=== PATIENT | female | born 1945 | race Caucasian/White ===

== ENCOUNTER 2017-05-11 19:16 | Emergency (ER) | payer MEDICARE ==
[~2017-05-11] VITALS: Ht 157.5 cm; Wt 70.5 kg
[~2017-05-11 19:16] MED LIST: ACET-3068 PO; ATOR20TA PO; LYR25C PO; MULT-1085 PO; NIFE10CA PO; VITA100C5 PO
[2017-05-11] MEDS ORDERED: normal saline 1000ML IV soln IV ONE (19:35)
[2017-05-11 20:12] LABS: HEMOGLOBIN 13.3 g/dl (12.0-16.0); MEAN CORPUSCULAR HEMOGLOBIN 29.9 PG (27.0-31.0); MEAN CORPUSCULAR VOLUME 87.8 FL (78-98); MEAN PLATELET VOLUME 8.7 FL (7.4-10.4); PLATELET COUNT 141 X10'3 (140-440); RED BLOOD COUNT 4.44 X10'6 (4.20-5.60); RED CELL DISTRIBUTION WIDTH 15.6 % (11.5-14.5); WHITE BLOOD COUNT 3.1 X10'3 (4.5-11.0)
[2017-05-11 20:23] LABS: ALANINE AMINOTRANSFERASE 31 U/L (12-78); ALBUMIN 3.2 G/DL (3.4-5.0); ALBUMIN/GLOBULIN RATIO 1.1 (1.1-1.5); ALKALINE PHOSPHATASE 81 IU/L (46-116); ANION GAP 7 (8-16); ASPARTATE AMINO TRANSFERASE 29 U/L (10-37); BILIRUBIN,TOTAL 0.2 MG/DL (0.1-1.0); BLOOD UREA NITROGEN 18 MG/DL (7-18); BUN/CREATININE RATIO 22.5 (6.6-38.0); CALCIUM 8.2 MG/DL (8.5-10.1); CHLORIDE 107 MMOL/L (99-107); GLUCOSE 104 MG/DL (70-104); POTASSIUM 3.4 MMOL/L (3.5-5.1); SODIUM 139 MMOL/L (135-145); TOTAL CARBON DIOXIDE 24.7 MMOL/L (24-32); TOTAL PROTEIN 6.2 G/DL (6.4-8.2); eGFR 71 ML/MIN
[2017-05-11 20:31] LABS: TOTAL CELLS COUNTED 100
[2017-05-11 20:32] LABS: PLATELET ESTIMATE NORMAL
[2017-05-11] MEDS ORDERED: oseltamivir phos 75mg capsule PO STA (21:07)
[2017-05-11] MEDS ORDERED: TAM75C PO (21:08)
[2017-05-11 21:33] VITALS: BP 108/56
== END 2017-05-11 21:41 | disposition home or self-care (01) ==
LOC: ER 19:17
DX: E86.0 Dehydration (principal); R55 Syncope and collapse; J10.1 Influenza due to other identified influenza virus with other respiratory manifestations; M19.90 Unspecified osteoarthritis, unspecified site; G89.29 Other chronic pain; Z90.710 Acquired absence of both cervix and uterus; Z88.0 Allergy status to penicillin; Z88.2 Allergy status to sulfonamides; Z91.040 Latex allergy status; Z88.8 Allergy status to other drugs, medicaments and biological substances; Z91.041 Radiographic dye allergy status; Z79.899 Other long term (current) drug therapy
CPT/HCPCS: 36415; 71045; 80053; 85025; 87502; 87503; 93005; 96360; 99285; J7030

== ENCOUNTER 2017-08-20 06:44 | Day surgery (SDC) | payer MEDICARE ==
[~2017-08-20] VITALS: Ht 157.5 cm; Wt 71.0 kg
[2017-08-20] VITALS (26 sets, daily range): BP systolic 95–134; BP diastolic 40–73
[2017-08-20] MEDS ORDERED: normal saline 1000ml 1,000 ML IV PRN (07:10)
[2017-08-20 07:30] LABS: BASOPHILS # (AUTO) 0.1 X10'3 (0-0.2); EOSINOPHILS # (AUTO) 0.4 X10'3 (0-0.9); EOSINOPHILS % (AUTO) 6.8 % (0-6); HEMATOCRIT 40.1 % (35.0-45.0); HEMOGLOBIN 13.6 g/dl (12.0-16.0); LYMPHOCYTES # (AUTO) 1.6 X10'3 (1.1-4.8); LYMPHOCYTES % (AUTO) 29.6 % (21-51); MEAN CORPUSCULAR HEMOGLOBIN 29.3 PG (27.0-31.0); MEAN CORPUSCULAR HGB CONC 33.9 % (33.0-36.5); MEAN CORPUSCULAR VOLUME 86.4 FL (78-98); MEAN PLATELET VOLUME 8.8 FL (7.4-10.4); MONOCYTES # (AUTO) 0.6 X10'3 (0-0.9); MONOCYTES % (AUTO) 10.7 % (2-12); NEUTROPHILS # (AUTO) 2.7 X10'3 (1.8-7.7); NEUTROPHILS % (AUTO) 50.9 % (42-75); PLATELET COUNT 157 X10'3 (140-440); RED BLOOD COUNT 4.64 X10'6 (4.20-5.60); RED CELL DISTRIBUTION WIDTH 15.1 % (11.5-14.5); WHITE BLOOD COUNT 5.3 X10'3 (4.5-11.0)
[2017-08-20] MEDS ORDERED: [UNRECOGNIZED DRUG - OTHER] (07:47)
[2017-08-20] MEDS ORDERED: CELE200C PO (07:47)
[2017-08-20] MEDS ORDERED: NORMAL SALINE IPL ONE ×2 (08:55→09:05)
[2017-08-20] MEDS ORDERED: DOXYCYCLINE IPL ONE ×2 (08:55→09:05)
[2017-08-20] MEDS ORDERED: fentaNYL/PF 50MCG/1 ML 2ML syringe IV PRN (09:55)
[2017-08-20] MEDS ORDERED: midazolam 2 mg/2 ml injection IV PRN (09:55)
[2017-08-20] MEDS ORDERED: LIDOcaine 1%/PF (10mg/ml) 5ml vial ONE ×2 (10:04→11:13)
[2017-08-20] MEDS ORDERED: midazolam 2 mg/2 ml injection ONE (10:04)
[2017-08-20] MEDS ORDERED: fentaNYL/PF 50MCG/1 ML 2ML syringe ONE (10:04)
[2017-08-20] MEDS ORDERED: clindamycin 600mg/D5W 50ml 50 ML IV ONE ×2 (11:08→11:10)
[2017-08-20] MEDS ORDERED: normal saline 1000ml 1,000 ML IV SCH (12:01)
[2017-08-20] MEDS ORDERED: acetaminophen w/codeine (30MG) #3 tablet PO PRN (12:15)
[2017-08-20] MEDS ORDERED: celeCOXIB 100mg capsule PO SCH (13:00)
[2017-08-20] MEDS ORDERED: pregabalin 25mg capsule PO SCH (13:00)
[2017-08-20 15:39] LABS: BASOPHILS % (AUTO) 0.7 % (0-1); EOSINOPHILS # (AUTO) 0.3 X10'3 (0-0.9); EOSINOPHILS % (AUTO) 5.7 % (0-6); HEMATOCRIT 38.8 % (35.0-45.0); LYMPHOCYTES # (AUTO) 1.4 X10'3 (1.1-4.8); LYMPHOCYTES % (AUTO) 28.2 % (21-51); MEAN CORPUSCULAR HEMOGLOBIN 28.9 PG (27.0-31.0); MEAN CORPUSCULAR HGB CONC 33.6 % (33.0-36.5); MEAN CORPUSCULAR VOLUME 85.9 FL (78-98); MEAN PLATELET VOLUME 8.9 FL (7.4-10.4); MONOCYTES # (AUTO) 0.5 X10'3 (0-0.9); MONOCYTES % (AUTO) 10.8 % (2-12); NEUTROPHILS # (AUTO) 2.7 X10'3 (1.8-7.7); NEUTROPHILS % (AUTO) 54.6 % (42-75); PLATELET COUNT 144 X10'3 (140-440); RED BLOOD COUNT 4.51 X10'6 (4.20-5.60); RED CELL DISTRIBUTION WIDTH 15.1 % (11.5-14.5)
== END 2017-08-20 16:05 | disposition home or self-care (01) ==
LOC: SSTAY O 06:44
PROVIDERS: ATTEND Radiology Vascular & Interventional Radiology
DX: K76.89 Other specified diseases of liver (principal); N28.1 Cyst of kidney, acquired; E78.5 Hyperlipidemia, unspecified; I10 Essential (primary) hypertension; M19.90 Unspecified osteoarthritis, unspecified site; Z86.79 Personal history of other diseases of the circulatory system; Z90.710 Acquired absence of both cervix and uterus; Z72.89 Other problems related to lifestyle; Z88.2 Allergy status to sulfonamides; Z88.0 Allergy status to penicillin; Z91.040 Latex allergy status; Z91.041 Radiographic dye allergy status; Z79.1 Long term (current) use of non-steroidal anti-inflammatories (NSAID); Z79.891 Long term (current) use of opiate analgesic; Z79.82 Long term (current) use of aspirin; Z79.899 Other long term (current) drug therapy; Z98.890 Other specified postprocedural states
CPT/HCPCS: 36415; 49405; 85025; 99152; 99153; J2001; J2250; J3010; J3490; J7030; C1729; J7040

== ENCOUNTER 2019-06-23 17:50 | Emergency (ER) | payer MEDICARE ==
[~2019-06-23] VITALS: Ht 157.5 cm; Wt 62.8 kg
[~2019-06-23 17:50] MED LIST changes: -ATOR20TA PO; +CELE200C PO; -MULT-1085 PO; -NIFE10CA PO; -VITA100C5 PO; +[UNRECOGNIZED DRUG - OTHER]
[2019-06-23] MEDS ORDERED: dicyclomine 10 MG capsule PO ONE (19:00)
[2019-06-23] MEDS ORDERED: acetaminophen 325mg tablet PO ONE (19:00)
[2019-06-23] MEDS ORDERED: ketorolac trometh. 30mg/ml inj. IV ONE (19:00)
[2019-06-23] MEDS ORDERED: normal saline 1000ml 1,000 ML IV ONE (19:00)
[2019-06-23 19:28] LABS: BASOPHILS # (AUTO) 0.1 X10'3 (0-0.2); BASOPHILS % (AUTO) 1.2 % (0-1); EOSINOPHILS # (AUTO) 0.2 X10'3 (0-0.9); EOSINOPHILS % (AUTO) 2.8 % (0-6); HEMATOCRIT 39.9 % (35.0-45.0); HEMOGLOBIN 13.6 g/dl (12.0-16.0); LYMPHOCYTES # (AUTO) 1.6 X10'3 (1.1-4.8); LYMPHOCYTES % (AUTO) 23.6 % (21-51); MEAN CORPUSCULAR HEMOGLOBIN 29.5 PG (27.0-31.0); MEAN CORPUSCULAR VOLUME 86.7 FL (78-98); MEAN PLATELET VOLUME 7.8 FL (7.4-10.4); MONOCYTES # (AUTO) 0.6 X10'3 (0-0.9); MONOCYTES % (AUTO) 8.2 % (2-12); NEUTROPHILS # (AUTO) 4.4 X10'3 (1.8-7.7); NEUTROPHILS % (AUTO) 64.2 % (42-75); PLATELET COUNT 258 X10'3 (140-440); RED CELL DISTRIBUTION WIDTH 15.4 % (11.5-14.5); WHITE BLOOD COUNT 6.8 X10'3 (4.5-11.0)
[2019-06-23 19:31] LABS: ALANINE AMINOTRANSFERASE 20 U/L (12-78); ALBUMIN 3.7 G/DL (3.4-5.0); ALKALINE PHOSPHATASE 105 IU/L (46-116); ANION GAP 10 (8-16); ASPARTATE AMINO TRANSFERASE 23 U/L (10-37); BILIRUBIN,TOTAL 0.4 MG/DL (0.1-1.0); BLOOD UREA NITROGEN 12 MG/DL (7-18); BUN/CREATININE RATIO 15.4 (6.6-38.0); CALCIUM 9.8 MG/DL (8.5-10.1); CHLORIDE 107 MMOL/L (99-107); CREATININE 0.78 MG/DL (0.40-0.90); GLUCOSE 105 MG/DL (70-104); POTASSIUM 3.8 MMOL/L (3.5-5.1); SODIUM 144 MMOL/L (135-145); TOTAL PROTEIN 7.3 G/DL (6.4-8.2); eGFR 73 ML/MIN
[2019-06-23 19:36] LABS: LIPASE 61 U/L (73-393); TROPONIN I < 0.04 NG/ML (0.0-0.05)
[2019-06-23 19:37] LABS: CLARITY,URINE CLEAR (Clear); COLOR,URINE YELLOW (Yellow); GLUCOSE, URINE NEGATIVE (Neg); KETONES,URINE NEGATIVE (Neg); LEUKOCYTE ESTERASE ,URINE NEGATIVE (Neg); NITRITES, URINE NEGATIVE (Neg); OCCULT BLOOD,URINE NEGATIVE (Neg); PH,URINE 6.5 (4.8-8.0); PROTEIN,URINE NEGATIVE (Neg); UROBILINOGEN,URINE 0.2 E.U/dL (0.2-1.0)
[2019-06-23 19:49] LABS: UA COLLECTION TYPE CLN CATCH MIDSTREAM
[2019-06-23 19:53] VITALS: BP 147/78
[2019-06-23] MEDS ORDERED: bisacodyl 5mg tablet.DR PO ONE ×2 (20:00→20:10)
[2019-06-23] MEDS ORDERED: POLY119P2 PO (20:01)
[2019-06-23] MEDS ORDERED: MAGN296S68 PO (20:01)
[2019-06-24] MEDS ORDERED: ATOR20TA PO (13:15)
[2019-06-24] MEDS ORDERED: CELE-193 PO (13:15)
[2019-06-24] MEDS ORDERED: GABA-530 PO (13:15)
[2019-06-24] MEDS ORDERED: NIFE-58 PO (13:15)
[2019-06-24] MEDS ORDERED: SOLI5TAB2 PO (13:17)
== END 2019-06-23 20:26 | disposition home or self-care (01) ==
LOC: ER 17:51
DX: R10.30 Lower abdominal pain, unspecified (principal); K59.00 Constipation, unspecified; M19.90 Unspecified osteoarthritis, unspecified site; G89.29 Other chronic pain; I25.2 Old myocardial infarction; Z72.89 Other problems related to lifestyle; Z79.899 Other long term (current) drug therapy; Z88.0 Allergy status to penicillin; Z88.2 Allergy status to sulfonamides; Z91.040 Latex allergy status
CPT/HCPCS: 36415; 74176; 80053; 81003; 83605; 83690; 84484; 85025; 96374; 99285; J1885; J7030; 93005

== ENCOUNTER 2019-06-24 08:54 | Inpatient (IN) | payer MEDICARE ==
[~2019-06-24] VITALS: Ht 157.5 cm; Wt 62.0 kg
[~2019-06-24 08:54] MED LIST changes: +MAGN296S68 PO; +POLY119P2 PO
[2019-06-24 09:44] LABS: BASOPHILS # (AUTO) 0.1 X10'3 (0-0.2); BASOPHILS % (AUTO) 0.4 % (0-1); EOSINOPHILS % (AUTO) 0.2 % (0-6); HEMOGLOBIN 14.9 g/dl (12.0-16.0); MEAN CORPUSCULAR HEMOGLOBIN 29.5 PG (27.0-31.0); MEAN CORPUSCULAR HGB CONC 33.8 g/dL (33.0-36.5); MEAN CORPUSCULAR VOLUME 87.1 FL (78-98); MONOCYTES # (AUTO) 0.7 X10'3 (0-0.9); NEUTROPHILS # (AUTO) 12.6 X10'3 (1.8-7.7); NEUTROPHILS % (AUTO) 87.4 % (42-75); PLATELET COUNT 265 X10'3 (140-440); RED BLOOD COUNT 5.06 X10'6 (4.20-5.60); RED CELL DISTRIBUTION WIDTH 15.5 % (11.5-14.5); WHITE BLOOD COUNT 14.4 X10'3 (4.5-11.0)
[2019-06-24 09:56] LABS: ALANINE AMINOTRANSFERASE 24 U/L (12-78); ALBUMIN 3.8 G/DL (3.4-5.0); ALKALINE PHOSPHATASE 121 IU/L (46-116); ANION GAP 11 (8-16); ASPARTATE AMINO TRANSFERASE 23 U/L (10-37); BILIRUBIN,TOTAL 0.5 MG/DL (0.1-1.0); BLOOD UREA NITROGEN 15 MG/DL (7-18); BUN/CREATININE RATIO 16.1 (6.6-38.0); CALCIUM 10.1 MG/DL (8.5-10.1); CHLORIDE 106 MMOL/L (99-107); CREATININE 0.93 MG/DL (0.40-0.90); GLUCOSE 117 MG/DL (70-104); LIPASE 57 U/L (73-393); POTASSIUM 3.8 MMOL/L (3.5-5.1); SODIUM 142 MMOL/L (135-145); TOTAL CARBON DIOXIDE 24.8 MMOL/L (24-32); TOTAL PROTEIN 7.6 G/DL (6.4-8.2); eGFR 59 ML/MIN
[2019-06-24 10:16] LABS: CLARITY,URINE CLEAR (Clear); COLOR,URINE BROWN (Yellow); GLUCOSE, URINE NEGATIVE (Neg); KETONES,URINE 15 mg/dl (Neg); LEUKOCYTE ESTERASE ,URINE NEGATIVE (Neg); NITRITES, URINE NEGATIVE (Neg); OCCULT BLOOD,URINE NEGATIVE (Neg); PROTEIN,URINE TRACE mg/dl (Neg)
[2019-06-24] MEDS ORDERED: normal saline 1000ml 1,000 ML IV ONE (10:16)
[2019-06-24] MEDS ORDERED: bisacodyl 10mg suppository rectal RC STA (10:16)
[2019-06-24 10:19] LABS: UA COLLECTION TYPE VOIDED
[2019-06-24] MEDS ORDERED: normal saline 1000ML IV soln IVB ONE (10:20)
[2019-06-24] MEDS ORDERED: metoclopramide 5 mg/ml inj IV ONE (10:20)
[2019-06-24] MEDS ORDERED: diphenhydrAMINE 50 mg/ml inj IV ONE (10:20)
[2019-06-24] MEDS ORDERED: lactulose 20gm/30ml cup PO ONE (10:20)
[2019-06-24 10:22] LABS: WBC,URINE 0-4 /HPF (0-4)
[2019-06-24 10:23] LABS: BACTERIA,URINE FEW /HPF (Neg); COARSE GRANULAR CAST 0-3 /LPF (NEGATIVE); MUCUS STRANDS FEW /LPF (Neg); RBC,URINE NONE SEEN /HPF (0-2); SQUAMOUS EPITHELIAL CELL,UR FEW /LPF (FEW); WBC CASTS 0-3 /LPF (NEGATIVE)
[2019-06-24] MEDS ORDERED: morphine 4 MG/ML inj SYRINge IV ONE (12:25)
[2019-06-24] MEDS ORDERED: ketorolac tromethamine 15mg/ml inj. IV ONE (12:40)
[2019-06-24] MEDS ORDERED: NIFE-58 PO (13:15)
[2019-06-24] MEDS ORDERED: GABA-530 PO (13:15)
[2019-06-24] MEDS ORDERED: CELE-193 PO (13:15)
[2019-06-24] MEDS ORDERED: ATOR20TA PO (13:15)
[2019-06-24] MEDS ORDERED: SOLI5TAB2 PO (13:17)
--- NOTE | 2019-06-24 13:18 | NUR ---
Patient assisted to bedside commode, unable to pass stool. Patient reports some flatus
[2019-06-24] MEDS ORDERED: ondansetron/PF 4mg/2ml inj IV PRN (13:25)
[2019-06-24] MEDS ORDERED: magnesium 2GM in 50ml NS 50 ML IV PRN (13:25)
[2019-06-24] MEDS ORDERED: potassium CL 10mEq/100ml bag 100 ML IV PRN ×2 (13:25)
[2019-06-24] MEDS ORDERED: mag hydrox/Alum hydrox/simeth 30ml oral suspension PO PRN (13:25)
[2019-06-24] MEDS ORDERED: potassium Cl 20 mEq SR tablet PO PRN ×2 (13:25)
[2019-06-24] MEDS ORDERED: magnesium 4gm in 100ml NS 100 ML IV PRN (13:25)
[2019-06-24] MEDS ORDERED: morphine 2 MG/ML inj. syringe IV PRN (13:25)
[2019-06-24] MEDS ORDERED: magnesium Cl slow-release 64mg tablet PO PRN (13:25)
[2019-06-24] MEDS ORDERED: HYDROcodone/acetaminophen 5mg/325mg tablet PO PRN (13:25)
[2019-06-24] MEDS ORDERED: acetaminophen 325mg tablet PO PRN ×2 (13:25)
[2019-06-24] MEDS ORDERED: [UNRECOGNIZED DRUG - OTHER] TP ONE (14:30)
--- NOTE | 2019-06-24 15:22 | NUR ---
2 RNs performed soap suds enema as ordered at 1504, instilled 500ccs of solution according to the policy. Patient transferred to commode approx 10 mins later, patient passed brown-tinged clear liquid only. Hygiene performed and linens changed, ice packs applied to patient's lower back per her request. Patient assisted back to bed.
[2019-06-24] MEDS: normal saline 1000ml 1,000 ML IV SCH (16:03)
--- NOTE | 2019-06-24 16:59 | NUR ---
Patient passed a small amount of hard stool and reported that her pain has migrated to the RLQ.
[2019-06-24 17:49] VITALS: BP 149/71
[2019-06-24 18:00] VITALS: BP 144/71
--- NOTE | 2019-06-24 18:00 | NUR ---
Patient in room [facility]. I have received report from Caesar HORVATH and had the opportunity to ask questions and assume patient care. Addendum: 06/25/19 at 0033 by Keeley Saleh RN Amended: Links added.
--- NOTE | 2019-06-24 18:28 | NUR ---
Problems reprioritized. Patient report given, questions answered & plan of care reviewed with ALEXANDRU Mina.
[2019-06-24] MEDS: gabapentin 100mg capsule PO SCH (20:36)
[2019-06-24] MEDS: oxybutynin 5mg tablet PO SCH (20:36)
[2019-06-24] MEDS: K and/or MAG REPLACEMENT MC SCH (20:44)
[2019-06-24] MEDS: heparin, porcine 5000 units/ml vial SQ SCH (20:56)
[2019-06-24] MEDS ORDERED: temazepam 15mg capsule PO PRN (21:00)
[2019-06-24] MEDS ORDERED: atorvastatin 20mg tablet PO SCH (21:00)
[2019-06-25] VITALS: BP 135/62
[2019-06-25] MEDS: normal saline 1000ml 1,000 ML IV SCH ×2 (00:19→10:08)
--- NOTE | 2019-06-25 02:40 | NUR ---
pt. having mutiple episodes of loose stools. No c/o n/v at this time. Addendum: 06/25/19 at 0711 by Keeley Saleh RN Amended: Links added.
--- NOTE | 2019-06-25 05:30 | NUR ---
Pt. continue having loose stools episodes. NS running at 100ML/hr. Call light in place Addendum: 06/25/19 at 0713 by Keeley Saleh RN Amended: Links added.
--- NOTE | 2019-06-25 06:00 | NUR ---
Problems reprioritized. Patient report given to nurse Amna HORVATH, questions answered & plan of care reviewed with . Addendum: 06/25/19 at 0801 by Keeley Saleh RN Amended: Links added.
[2019-06-25 07:00] VITALS: BP 118/61
[2019-06-25] MEDS: oxybutynin 5mg tablet PO SCH (08:00)
[2019-06-25] MEDS: K and/or MAG REPLACEMENT MC SCH (08:00)
[2019-06-25] MEDS ORDERED: NIFEdipine XL 30mg tablet PO SCH (08:00)
[2019-06-25 08:06] LABS: BASOPHILS # (AUTO) 0.1 X10'3 (0-0.2); BASOPHILS % (AUTO) 0.7 % (0-1); EOSINOPHILS % (AUTO) 0.1 % (0-6); HEMATOCRIT 38.3 % (35.0-45.0); LYMPHOCYTES % (AUTO) 9.4 % (21-51); MEAN CORPUSCULAR HEMOGLOBIN 29.7 PG (27.0-31.0); MEAN CORPUSCULAR VOLUME 87.4 FL (78-98); MEAN PLATELET VOLUME 8.2 FL (7.4-10.4); MONOCYTES # (AUTO) 0.8 X10'3 (0-0.9); MONOCYTES % (AUTO) 7.5 % (2-12); NEUTROPHILS # (AUTO) 8.9 X10'3 (1.8-7.7); NEUTROPHILS % (AUTO) 82.3 % (42-75); PLATELET COUNT 225 X10'3 (140-440); RED BLOOD COUNT 4.38 X10'6 (4.20-5.60); RED CELL DISTRIBUTION WIDTH 15.1 % (11.5-14.5); WHITE BLOOD COUNT 10.8 X10'3 (4.5-11.0)
[2019-06-25] MEDS: heparin, porcine 5000 units/ml vial SQ SCH (08:12)
[2019-06-25] MEDS: gabapentin 100mg capsule PO SCH (08:12)
[2019-06-25 09:44] LABS: ALANINE AMINOTRANSFERASE 19 U/L (12-78); ALBUMIN 2.8 G/DL (3.4-5.0); ALBUMIN/GLOBULIN RATIO 0.9 (1.1-1.5); ALKALINE PHOSPHATASE 94 IU/L (46-116); ANION GAP 8 (8-16); ASPARTATE AMINO TRANSFERASE 20 U/L (10-37); BILIRUBIN,TOTAL 0.6 MG/DL (0.1-1.0); BLOOD UREA NITROGEN 22 MG/DL (7-18); BUN/CREATININE RATIO 26.5 (6.6-38.0); CHLORIDE 110 MMOL/L (99-107); CREATININE 0.83 MG/DL (0.40-0.90); GLUCOSE 116 MG/DL (70-104); MAGNESIUM 2.3 MG/DL (1.5-2.4); POTASSIUM 3.7 MMOL/L (3.5-5.1); SODIUM 144 MMOL/L (135-145); TOTAL CARBON DIOXIDE 25.9 MMOL/L (24-32); TOTAL PROTEIN 5.9 G/DL (6.4-8.2); eGFR 68 ML/MIN
[2019-06-25 09:53] LABS: CALCIUM 8.1 MG/DL (8.5-10.1)
[2019-06-25 12:00] VITALS: BP 85/43
[2019-06-25] MEDS ORDERED: CELE-193 PO (12:14)
[2019-06-25 13:20] VITALS: BP 117/49
--- NOTE | 2019-06-25 13:45 | NUR ---
Pt discharged home with . Her obstipation is no longer an issue for her. 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 IV taken out, all belongings taken from room. Tele monitor dc'd and returned. Pt has med sent to pharmacy.
[2019-06-26] MEDS ORDERED: methylnaltrexone br 12mg/0.6ml inj***SubQ only SQ SCH (08:00)
== END 2019-06-25 13:45 | disposition home or self-care (01) | DRG 392 ==
LOC: ER 08:54 → ED HOLD 13:21 → SUR 3N 17:30
PROVIDERS: ADMIT Internal Medicine; ATTEND Internal Medicine
DX: K59.00 Constipation, unspecified (principal); G89.4 Chronic pain syndrome; D72.829 Elevated white blood cell count, unspecified; E78.5 Hyperlipidemia, unspecified; Z96.619 Presence of unspecified artificial shoulder joint; M19.90 Unspecified osteoarthritis, unspecified site; M54.5 Low back pain; N28.9 Disorder of kidney and ureter, unspecified; R32 Unspecified urinary incontinence; Z90.710 Acquired absence of both cervix and uterus; Z88.0 Allergy status to penicillin; Z88.2 Allergy status to sulfonamides; Z91.040 Latex allergy status; T39.95XA Adverse effect of unspecified nonopioid analgesic, antipyretic and antirheumatic, initial encounter
CPT/HCPCS: 36415; 80053; 81001; 83690; 83735; 85025; 87081; 96361; 96375; 99285; G0378; J1200; J1644; J1885; J2270; J2405; J2765; J7030

== ENCOUNTER 2020-07-17 08:37 | Day surgery (SDC) | payer MEDICARE ==
[2020-07-17] VITALS (10 sets, daily range): BP systolic 135–149; BP diastolic 68–83
[~2020-07-17] VITALS: Ht 157.5 cm; Wt 61.6 kg
[~2020-07-17 08:37] MED LIST changes: -ACET-3068 PO; +ATOR20TA PO; +CELE-193 PO; -CELE200C PO; +GABA-530 PO; -LYR25C PO; -MAGN296S68 PO; +NIFE-58 PO; -POLY119P2 PO; +SOLI5TAB2 PO; -[UNRECOGNIZED DRUG - OTHER]
[2020-07-17] MEDS ORDERED: normal saline 1000ml 1,000 ML IV SCH (09:05)
[2020-07-17] MEDS ORDERED: PANT40TA54 PO (09:10)
[2020-07-17] MEDS ORDERED: IBUP-1986 PO (09:10)
[2020-07-17] MEDS ORDERED: CHOL100046 PO (09:12)
[2020-07-17] MEDS ORDERED: CALC-1017 PO (09:12)
[2020-07-17] MEDS ORDERED: VITA400T10 PO (09:12)
[2020-07-17] MEDS ORDERED: BIOT50002 (09:12)
[2020-07-17] MEDS ORDERED: MULT-1085 PO (09:12)
[2020-07-17] MEDS ORDERED: UBID100C16 PO (09:12)
[2020-07-17 09:31] LABS: BASOPHILS # (AUTO) 0.1 X10'3 (0-0.2); BASOPHILS % (AUTO) 1.3 % (0-1); EOSINOPHILS # (AUTO) 0.1 X10'3 (0-0.9); EOSINOPHILS % (AUTO) 1.4 % (0-6); HEMATOCRIT 42.8 % (35.0-45.0); HEMOGLOBIN 14.1 g/dl (12.0-16.0); LYMPHOCYTES # (AUTO) 1.1 X10'3 (1.1-4.8); LYMPHOCYTES % (AUTO) 24.2 % (21-51); MEAN CORPUSCULAR HEMOGLOBIN 29.6 PG (27.0-31.0); MEAN CORPUSCULAR HGB CONC 33.1 g/dL (33.0-36.5); MEAN CORPUSCULAR VOLUME 89.5 FL (78-98); MEAN PLATELET VOLUME 7.8 FL (7.4-10.4); MONOCYTES # (AUTO) 0.4 X10'3 (0-0.9); MONOCYTES % (AUTO) 10.1 % (2-12); NEUTROPHILS # (AUTO) 2.8 X10'3 (1.8-7.7); PLATELET COUNT 172 X10'3 (140-440); RED BLOOD COUNT 4.78 X10'6 (4.20-5.60); WHITE BLOOD COUNT 4.4 X10'3 (4.5-11.0)
[2020-07-17] MEDS ORDERED: ceFAZolin/D5W- 1GM premix 50 ML IV ONE (10:25)
[2020-07-17] MEDS ORDERED: fentaNYL/PF 50MCG/1 ML 2ML syringe ONE (10:33)
[2020-07-17] MEDS ORDERED: midazolam 1 mg/ML 2ml injection ONE (10:33)
[2020-07-17] MEDS ORDERED: ondansetron/PF 4mg/2ml inj ONE (11:09)
== END 2020-07-17 12:19 | disposition home or self-care (01) ==
LOC: SSTAY O 08:37
PROVIDERS: ATTEND Radiology Vascular & Interventional Radiology
DX: K76.89 Other specified diseases of liver (principal); R10.9 Unspecified abdominal pain
CPT/HCPCS: 36415; 49405; 85025; J2250; J2405; J3010; J7030; U0003; 99152; 99153

== ENCOUNTER 2021-04-26 12:32 | Emergency (ER) | payer MEDICARE ==
[~2021-04-26] VITALS: Ht 165.1 cm; Wt 54.5 kg
[~2021-04-26 12:32] MED LIST changes: +CART1TAB4 PO; -CELE-193 PO; +FOCUS FACTOR PO; -GABA-530 PO; +MELO-102 PO; +PANT40TA54 PO; +SUPER C COMPLEX PO; +UBID100C16 PO; +VITA1TAB37 PO
[2021-04-26 14:21] LABS: EOSINOPHILS % (AUTO) 1.1 % (0-6); HEMOGLOBIN 14.5 g/dl (12.0-16.0); LYMPHOCYTES # (AUTO) 0.4 X10'3 (1.1-4.8); LYMPHOCYTES % (AUTO) 16.3 % (21-51); MEAN PLATELET VOLUME 7.6 FL (7.4-10.4); MONOCYTES # (AUTO) 0.6 X10'3 (0-0.9); NEUTROPHILS # (AUTO) 1.5 X10'3 (1.8-7.7); RED CELL DISTRIBUTION WIDTH 14.4 % (11.5-14.5)
[2021-04-26 14:22] LABS: BASOPHILS % (AUTO) 1.8 % (0-1); HEMATOCRIT 43.3 % (35.0-45.0); MEAN CORPUSCULAR HEMOGLOBIN 30.1 PG (27.0-31.0); MEAN CORPUSCULAR HGB CONC 33.5 g/dL (33.0-36.5); MEAN CORPUSCULAR VOLUME 89.8 FL (78-98); NEUTROPHILS % (AUTO) 58.8 % (42-75); PLATELET COUNT 149 X10'3 (140-440); RED BLOOD COUNT 4.82 X10'6 (4.20-5.60); WHITE BLOOD COUNT 2.5 X10'3 (4.5-11.0)
[2021-04-26 14:41] LABS: PLATELET ESTIMATE DECREASED; TOTAL CELLS COUNTED 100
[2021-04-26 14:43] LABS: ALANINE AMINOTRANSFERASE 23 U/L (12-78); ALBUMIN 3.9 G/DL (3.4-5.0); ALBUMIN/GLOBULIN RATIO 1.2 (1.1-1.5); ALKALINE PHOSPHATASE 74 IU/L (46-116); ANION GAP 11 (8-16); ASPARTATE AMINO TRANSFERASE 26 U/L (10-37); BILIRUBIN,TOTAL 0.4 MG/DL (0.1-1.0); BLOOD UREA NITROGEN 17 MG/DL (7-18); BUN/CREATININE RATIO 18.3 (6.6-38.0); CALCIUM 9.4 MG/DL (8.5-10.1); CHLORIDE 105 MMOL/L (99-107); CREATININE 0.93 MG/DL (0.40-0.90); GLUCOSE 87 MG/DL (70-104); POTASSIUM 3.7 MMOL/L (3.5-5.1); SODIUM 140 MMOL/L (135-145); TOTAL CARBON DIOXIDE 23.7 MMOL/L (24-32); TOTAL PROTEIN 7.1 G/DL (6.4-8.2); eGFR 59 ML/MIN
[2021-04-26 14:50] LABS: LIPASE 58 U/L (73-393)
[2021-04-26] MEDS ORDERED: HYDR-3965 PO (15:28)
[2021-04-26] MEDS ORDERED: ONDA4TAB6 PO (15:28)
[2021-04-26 16:11] VITALS: BP 141/71
== END 2021-04-26 16:16 | disposition home or self-care (01) ==
LOC: ER 12:33
DX: K76.89 Other specified diseases of liver (principal); R10.11 Right upper quadrant pain; R11.0 Nausea; M19.90 Unspecified osteoarthritis, unspecified site; G89.29 Other chronic pain; Z90.710 Acquired absence of both cervix and uterus; Z72.89 Other problems related to lifestyle; Z88.0 Allergy status to penicillin; Z88.2 Allergy status to sulfonamides; Z91.040 Latex allergy status; Z88.8 Allergy status to other drugs, medicaments and biological substances; Z79.899 Other long term (current) drug therapy
CPT/HCPCS: 36415; 76700; 80053; 83690; 84484; 85007; 85025; 93005; 99285

== ENCOUNTER 2021-04-28 06:44 | Day surgery (SDC) | payer MEDICARE ==
[2021-04-24 15:39] LABS: BASOPHILS # (AUTO) 0.1 X10'3 (0-0.2); EOSINOPHILS # (AUTO) 0.2 X10'3 (0-0.9); LYMPHOCYTES # (AUTO) 1.1 X10'3 (1.1-4.8)
[2021-04-24 15:41] LABS: MEAN CORPUSCULAR HEMOGLOBIN 30.4 PG (27.0-31.0); MEAN CORPUSCULAR HGB CONC 33.9 g/dL (33.0-36.5); MEAN CORPUSCULAR VOLUME 89.8 FL (78-98); MEAN PLATELET VOLUME 7.6 FL (7.4-10.4); MONOCYTES # (AUTO) 0.7 X10'3 (0-0.9); MONOCYTES % (AUTO) 13.6 % (2-12); PRE OP HEMATOCRIT 41.4 % (35.0-45.0); PRE OP PLATELET COUNT 193 X10'3 (140-440); RED BLOOD COUNT 4.61 X10'6 (4.20-5.60); RED CELL DISTRIBUTION WIDTH 14.3 % (11.5-14.5)
[2021-04-24 15:44] LABS: ALBUMIN/GLOBULIN RATIO 1.3 (1.1-1.5); ALKALINE PHOSPHATASE 74 IU/L (46-116); BLOOD UREA NITROGEN 21 MG/DL (7-18); BUN/CREATININE RATIO 25.9 (6.6-38.0); CALCIUM 9.1 MG/DL (8.5-10.1); CHLORIDE 105 MMOL/L (99-107); CREATININE 0.81 MG/DL (0.40-0.90); PRE OP ALT 27 U/L (30-65); PRE OP ANION GAP 12 (8-16); PRE OP AST 31 U/L (10-37); PRE OP BILIRUB, TOTAL 0.4 MG/DL (0.0-1.0); PRE OP GLUCOSE 90 MG/DL (70-104); PRE OP POTASSIUM 3.8 MMOL/L (3.4-5.1); PRE OP SODIUM 144 MMOL/L (135-145); TOTAL PROTEIN 7.2 G/DL (6.4-8.2); eGFR 69 ML/MIN
[2021-04-24 15:55] LABS: BASOPHILS % (AUTO) 1.3 % (0-1); LYMPHOCYTES % (AUTO) 21.5 % (21-51); NEUTROPHILS # (AUTO) 2.9 X10'3 (1.8-7.7); NEUTROPHILS % (AUTO) 58.6 % (42-75)
[~2021-04-28] VITALS: Ht 157.5 cm; Wt 58.1 kg
[2021-04-28] VITALS (7 sets, daily range): BP systolic 111–130; BP diastolic 63–68
[~2021-04-28 06:44] MED LIST changes: +BUPIVAcaine/PF 2.5mg/ml (0.25%) 10ml vial ONE; +HYDR-3965 PO; +ONDA4TAB6 PO; +clindamycin-Cleocin 900mg/D5W 50 ML IV ONE; +famotidine 20mg tablet PO ONE; +ringers solution, lacted 1,000 ML IV SCH
[2021-04-28] MEDS ORDERED: morphine 4 MG/ML inj SYRINge IV PRN (10:20)
[2021-04-28] MEDS ORDERED: morphine 2 MG/ML inj. syringe IV PRN (10:20)
[2021-04-28] MEDS ORDERED: ondansetron/PF 4mg/2ml inj IV PRN (10:20)
[2021-04-28] MEDS ORDERED: proCHLORperazine 10 MG/2 ml inj IV PRN (10:20)
[2021-04-28] MEDS ORDERED: meperidine/PF 25mg/ml syringe IV PRN ×3 (10:20)
[2021-04-28] MEDS ORDERED: ringers solution, lacted 1,000 ML IV SCH (10:20)
[2021-04-28] MEDS ORDERED: LIDOcaine 0.5% (5mg/ml) 50ml vial ONE (10:29)
[2021-04-28] MEDS ORDERED: fentaNYL/PF 50MCG/1 ML 2ML syringe ONE (10:52)
[2021-04-28] MEDS ORDERED: midazolam 1 mg/ML 2ml injection ONE (10:52)
--- NOTE | 2021-04-28 11:34 | NUR ---
Received from OR via , accompanied by Anesthesiologist DR ABAD and report given by Anesthesiolgist. AWAKENS TO VOICE. VITALS STABLE. DRESSINGS DI. HANS PAIN. C/O NAUSEA. WILL ADDRESS.
--- NOTE | 2021-04-28 12:44 | NUR ---
AWAKE AND ORIENTED. VITALS STABLE. DRESSINGS DI. HANS PAIN. HOME WITH HER SPOUSE AT THIS TIME.
== END 2021-04-28 12:44 | disposition home or self-care (01) ==
LOC: PAS 06:44
PROVIDERS: ATTEND Orthopaedic Surgery Hand Surgery
DX: M67.441 Ganglion, right hand (principal); M19.012 Primary osteoarthritis, left shoulder; M18.11 Unilateral primary osteoarthritis of first carpometacarpal joint, right hand; M19.072 Primary osteoarthritis, left ankle and foot; M19.042 Primary osteoarthritis, left hand; M19.041 Primary osteoarthritis, right hand; M19.071 Primary osteoarthritis, right ankle and foot; K21.9 Gastro-esophageal reflux disease without esophagitis; Z20.822 Contact with and (suspected) exposure to COVID-19; Z79.899 Other long term (current) drug therapy; Z88.0 Allergy status to penicillin; Z88.8 Allergy status to other drugs, medicaments and biological substances; Z91.040 Latex allergy status; Z91.041 Radiographic dye allergy status; Z72.89 Other problems related to lifestyle; Z90.710 Acquired absence of both cervix and uterus; Z96.612 Presence of left artificial shoulder joint; Z96.611 Presence of right artificial shoulder joint; Z98.890 Other specified postprocedural states
CPT/HCPCS: 26160; 80053; 82948; 85025; 87635; 93005; C9803; J2250; J2405; J3010; J3490; J7030; J7120; Z7506; Z7512; A4215

== ENCOUNTER 2021-11-25 09:25 | Outpatient (CLI) | payer MEDICARE ==
[~2021-11-25 09:25] MED LIST changes: -BUPIVAcaine/PF 2.5mg/ml (0.25%) 10ml vial ONE; -HYDR-3965 PO; -ONDA4TAB6 PO; -clindamycin-Cleocin 900mg/D5W 50 ML IV ONE; -famotidine 20mg tablet PO ONE; -ringers solution, lacted 1,000 ML IV SCH
== END 2021-11-25 23:59 | disposition home or self-care (01) ==
LOC: RAD 09:25
PROVIDERS: ATTEND Internal Medicine Cardiovascular Disease
DX: K76.89 Other specified diseases of liver (principal); N28.1 Cyst of kidney, acquired; I70.0 Atherosclerosis of aorta; M12.852 Other specific arthropathies, not elsewhere classified, left hip; I89.0 Lymphedema, not elsewhere classified; M12.851 Other specific arthropathies, not elsewhere classified, right hip; M47.816 Spondylosis without myelopathy or radiculopathy, lumbar region; M43.16 Spondylolisthesis, lumbar region
CPT/HCPCS: 74177; J3490

== ENCOUNTER 2023-11-04 09:03 | Outpatient (CLI) | payer MEDICARE ==
[2023-11-03 10:02] LABS: ALBUMIN 3.7 G/DL (3.4-5.0); ANION GAP 8 (8-16); BLOOD UREA NITROGEN 19 MG/DL (7-18); BUN/CREATININE RATIO 23.2 (10.0-20.0); CALCIUM 9.2 MG/DL (8.5-10.1); CHLORIDE 107 MMOL/L (99-107); CREATININE 0.82 MG/DL (0.40-0.90); GLUCOSE 90 MG/DL (70-104); POTASSIUM 3.7 MMOL/L (3.5-5.1); SODIUM 144 MMOL/L (135-145); TOTAL CARBON DIOXIDE 28.8 MMOL/L (24-32); eGFR 68 ML/MIN
[~2023-11-04 09:03] MED LIST changes: -FOCUS FACTOR PO; -SUPER C COMPLEX PO; -UBID100C16 PO
[2023-11-04] MEDS ORDERED: iohexol 300mg/ml 100ml inj. ONE (09:31)
== END 2023-11-04 23:59 | disposition home or self-care (01) ==
LOC: RAD 09:03
PROVIDERS: ATTEND Nurse Practitioner Acute Care
DX: N28.1 Cyst of kidney, acquired (principal); K76.89 Other specified diseases of liver
CPT/HCPCS: 36415; 74178; 80048; Q9967

== ENCOUNTER 2024-01-01 10:45 | Emergency (ER) | payer MEDICARE ==
[~2024-01-01] VITALS: Ht 154.9 cm; Wt 58.0 kg
[2024-01-01 10:47] VITALS: BP 143/55; PULSE 75; RESP 16; O2SAT 99
[2024-01-01 11:08] LABS: BILIRUBIN,URINE SMALL (Neg); CLARITY,URINE CLOUDY (Clear); COLOR,URINE YELLOW (Yellow); GLUCOSE, URINE NEGATIVE (Neg); KETONES,URINE TRACE mg/dl (Neg); LEUKOCYTE ESTERASE ,URINE MODERATE (Neg); NITRITES, URINE POSITIVE (Neg); OCCULT BLOOD,URINE LARGE (Neg); PROTEIN,URINE 100 mg/dl (Neg)
[2024-01-01 11:16] LABS: UA COLLECTION TYPE CLN CATCH MIDSTREAM
[2024-01-01 11:17] LABS: BACTERIA,URINE 2+ /HPF (Neg); MUCUS STRANDS NONE SEEN /LPF (Neg); RBC,URINE 50-100 /HPF (0-2); RENAL CELLS, URINE FEW /HPF; SQUAMOUS EPITHELIAL CELL,UR FEW /LPF (FEW); TRANSITIONAL EPI CELLS,URINE FEW /HPF; WBC,URINE TNTC /HPF (0-4)
[2024-01-01] MEDS ORDERED: CEPH-585 PO (11:23)
[2024-01-01 11:39] VITALS: TEMP 98.2
== END 2024-01-01 11:41 | disposition home or self-care (01) ==
LOC: ER 10:46
DX: N39.0 Urinary tract infection, site not specified (principal); M19.90 Unspecified osteoarthritis, unspecified site; G89.29 Other chronic pain; I25.2 Old myocardial infarction; Z88.0 Allergy status to penicillin; Z88.2 Allergy status to sulfonamides; Z91.041 Radiographic dye allergy status; Z91.040 Latex allergy status; Z79.899 Other long term (current) drug therapy; Z79.2 Long term (current) use of antibiotics; Z72.89 Other problems related to lifestyle; Z90.710 Acquired absence of both cervix and uterus
CPT/HCPCS: 81001; 87077; 87088; 87186; 99284